=== PATIENT | male | born 2000 | race Caucasian/White ===

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

== ENCOUNTER 2022-06-20 08:16 | Outpatient (CLI) | payer OTHER ==
--- NOTE | 2022-06-20 16:37 | MRI Report ---
PROCEDURE: WRIST WO - LT INDICATIONS: LEFT WRIST PAIN TECHNIQUE: Noncontrast coronal proton density fast spin echo and T2 fast spin echo with fat saturation; coronal 3-D gradient echo, axial T1 spin echo and T2 fast spin echo with fat saturation, sagittal T1 spin ech o through the wrist. COMPARISON: None. FINDINGS: Image quality: Excellent. Bones and cartilage: The carpal bones are normally aligned. No bone marrow contusions or fractures. No evidence for avascular necrosis. Overlying cartilage surfaces appear normal. Carpal ligaments: The scapholunate and lunotriquetral ligaments appear intact. In the absence of in tra-articular contrast, the extrinsic carpal ligaments are not well identified. On sagittal images, the pisohamate ligament appears intact. Triangular fibrocartilage complex: The triangular fibrocartilage appears intact. The adjacent menis nila homolog appears normal in the absence of intra-articular contrast. The extensor carpi ulnaris te ndon is mildly thickened at the level of ulnar styloid and triquetrum. Tendons and soft tissues: The carpal tunnel structures appear normal, including the median nerve. T he ulnar nerve appears normal within Guyon's canal. All six extensor tendon compartments demonstrate normal morphology, without pathologic tendon sheath fluid. No soft tissue ganglion cysts. IMPRESSION: 1. Finding is suggestive of mild tendinosis involving extensor Rodriguez naris tendon at the level of ul ce styloid and triquetrum. No other muscle or tendon signal abnormality is seen. 2. Intrinsic and extrinsic wrist ligaments are intact. 3. No marrow edema. No fracture or dislocation. No suspicious bony lesions. 4. Triangular fibrocartilage complex is grossly intact. Reviewed by: Pernell Fine MD on 06/20/2022 4:35 PM PST Approved by: Pernell Fine MD on 06/20/2022 4:35 PM PST Station ID: [id number]
== END 2022-06-20 08:17 | disposition home or self-care (01) ==
LOC: DI 08:16
PROVIDERS: ATTEND Physician Assistant
DX: M25.532 Pain in left wrist (principal)